=== PATIENT | male | born 1960 | race Caucasian/White ===

== ENCOUNTER → 2019-03-23 | Outpatient (CLI) | payer BC ==
[2019-03-23 14:24] LABS: PARTIAL THROMBOPLASTIN TIME 23.7 SECONDS (21.0-32.0); PROTHROMBIN TIME 10.2 SECONDS (9.0-12.0)
== END ==
LOC: LAB 13:41
PROVIDERS: Urology
DX: N20.0 Calculus of kidney (principal); N28.89 Other specified disorders of kidney and ureter

== ENCOUNTER → 2022-03-05 | Outpatient (CLI) | payer BC | LOC: VAS 12:48 | DX: I80.252 Phlebitis and thrombophlebitis of left calf muscular vein (principal) ==

== ENCOUNTER → 2024-10-21 | Outpatient (CLI) | payer BC, MEDICARE ==
[~2024-10-21] MED LIST: ELIQUIS5 M1 PO
== END ==
LOC: VAS 09:15 → RAD 09:15
DX: I82.411 Acute embolism and thrombosis of right femoral vein (principal)